=== PATIENT | male | born 1945 | race African-American/Black ===

== ENCOUNTER 2017-08-28 02:43 | Emergency (ER) | payer OTHER ==
[~2017-08-28] VITALS: Ht 180.3 cm; Wt 126.1 kg
[~2017-08-28 02:43] MED LIST: AMLO10TA3 PO; ASPI81CT89 PO; BACL10TA4 PO; CLOP75TA PO; COZ50 PO; FURO-570 PO; GABA300C PO; INSU100S22 SUBQ; ISOS20TA13 PO; LINA5TAB PO; METO-50 PO; NATE60TA PO; PANT40EC PO; POTA20SO16 PO; SIMV40TA1 PO
[2017-08-28 02:54] VITALS: BP 136/66
--- NOTE | 2017-08-28 03:55 | NUR ---
PT W/C ASSISTED TO BED 2.
--- NOTE | 2017-08-28 03:56 | NUR ---
PATIENT REFUSED GOWN AND TO BE PLACED ON MONITOR.
--- NOTE | 2017-08-28 04:16 | NUR ---
X-Ray at bedside.
--- NOTE | 2017-08-28 04:25 | NUR ---
71Y/M PRESENTS TO ER C/O PAIN. NKA, PMH COPD, DM, HTN, ARTHRITIS. PT HAS PAIN TO LEFT ANKLE, 8/10 NON RADIATING, CMS INTACT, SKIN INTACT, PT DENIES TRAUMA TO AREA. PT SAYS PAIN IS "FLAT". PT IS UNALBE TO BEAR WEIGHT ON ANKLE. SWELLING NOTED TO ANKLE AREA. PT LAYING BED, COMFORT NEEDS MET AT THIS TIME, ER MD AWARE OF PT STATUS.
[2017-08-28] MEDS ORDERED: IBUPROFEN 600 MG TAB PO ONE (04:40)
[2017-08-28] MEDS ORDERED: traMADol 50 MG TAB PO ONE (04:50)
--- NOTE | 2017-08-28 05:15 | NUR ---
Patient discharged with v/s stable. Written and verbal after care instructions given and explained. Patient alert, oriented and verbalized understanding of instructions. Wheel Chair Assisted with to car. All questions addressed prior to discharge. ID band removed. Patient advised to follow up with PMD. Rx of TRAMADOL given. Patient educated on indication of medication including possible reaction and side effects. Opportunity to ask questions provided and answered.
[2017-08-28 05:34] VITALS: BP 134/65
== END 2017-08-28 05:15 | disposition home or self-care (01) ==
LOC: MED 02:43
DX: M17.12 Unilateral primary osteoarthritis, left knee (principal); J44.9 Chronic obstructive pulmonary disease, unspecified; I10 Essential (primary) hypertension
CPT/HCPCS: 73630; 99284; Q0092

== ENCOUNTER 2018-03-09 22:43 | Emergency (ER) | payer OTHER ==
[~2018-03-09] VITALS: Ht 180.3 cm; Wt 130.6 kg
[2018-03-09 22:47] VITALS: BP 148/75
--- NOTE | 2018-03-09 22:54 | NUR ---
PT AMBULATED TO ER BED 7.
--- NOTE | 2018-03-09 22:55 | NUR ---
PATIENT PRESENTS TO ED WITH BILATERAL LOWER EXTREMITY PITTING EDEMA. PATIENT STATES HE NOTICED THE EDEMA "TONIGHT, THATS WHY I CAME IN". PT DENIES N/V/D; SKIN IS PINK/WARM/DRY; AAOX4 WITH EVEN AND STEADY GAIT; LUNGS WHEEZING BL; HR EVEN AND REGULAR; PT DENIES ANY FEVER, CP, OR COUGH AT THIS TIME; PATIENT STATES PAIN OF 0/10 AT THIS TIME; VSS; PATIENT POSITIONED FOR COMFORT; HOB ELEVATED; BEDRAILS UP X1; BED DOWN. ER MD MADE AWARE OF PT STATUS.
[2018-03-09] MEDS ORDERED: ALBUTEROL SULFATE/IPRATROPIU 3 ML SOL IH ONE ×2 (23:25→23:50)
--- NOTE | 2018-03-09 23:29 | NUR ---
UNABLE TO COLLECT URINE AT THIS TIME. DR. NGUYEN MADE AWARE
[2018-03-09] MEDS ORDERED: DILT120C91 PO (23:33)
[2018-03-09] MEDS ORDERED: ATOR10TA PO (23:33)
[2018-03-09] MEDS ORDERED: APIX5TAB PO (23:33)
[2018-03-09] MEDS ORDERED: TAMS0.4C96 PO (23:33)
[2018-03-09 23:53] LABS: BASOPHILS # (AUTO) 0.1 K/uL (0.00-0.22); BASOPHILS % (AUTO) 1.5 % (0.0-2.0); EOSINOPHILS # (AUTO) 0.1 K/uL (0-0.4); EOSINOPHILS % (AUTO) 2.2 % (0.0-4.0); HEMATOCRIT 33.5 % (36-52); HEMOGLOBIN 11.2 g/dL (12.0-18.0); LYMPHOCYTES % (AUTO) 32.7 % (20.5-51.1); MEAN CORPUSCULAR HEMOGLOBIN 26 pg (27-31); MEAN CORPUSCULAR HGB CONC 33 g/dL (33-37); MEAN CORPUSCULAR VOLUME 79.3 fL (80-94); MONOCYTES # (AUTO) 0.6 K/uL (0.8-1.0); MONOCYTES % (AUTO) 9.3 % (1.7-9.3); NEUTROPHILS # (AUTO) 3.4 K/uL (1.8-7.7); NEUTROPHILS % (AUTO) 54.3 % (42.2-75.2); PLATELET COUNT (AUTO) 187 K/uL (140-450); RED BLOOD CELL COUNT(AUTO) 4.22 MIL/uL (4.20-6.10); RED CELL DISTRIBUTION WIDTH 16.2 % (11.6-13.7); WHITE BLOOD COUNT (AUTO) 6.2 K/uL (4.8-10.8)
[2018-03-10 00:04] LABS: ANION GAP 13.5 (8-16); CARBON DIOXIDE 23.3 mmol/L (21-32); CHLORIDE 104 mmol/L (98-107); CREATININE 1.7 mg/dL (0.7-1.3); GLUCOSE 203 mg/dL (74-106); POTASSIUM 3.8 mmol/L (3.5-5.1); SODIUM SERUM 137 mmol/L (136-145); UREA NITROGEN, BLOOD 18 mg/dL (7-18)
[2018-03-10 00:12] LABS: ALBUMIN 3.3 g/dL (3.4-5.0); ASPARTATE AMINOTRANSFERASE 14 U/L (15-37); TOTAL BILIRUBIN 0.2 mg/dL (0.0-1.0)
[2018-03-10 00:30] VITALS: BP 148/75
--- NOTE | 2018-03-10 00:30 | NUR ---
Patient discharged with v/s stable. Written and verbal after care instructions given and explained. Patient verbalized understanding. Ambulatory with steady gait. All questions addressed prior to discharge. Advised to follow up with PMD.
== END 2018-03-10 00:30 | disposition home or self-care (01) ==
LOC: MED 22:43
DX: N17.9 Acute kidney failure, unspecified (principal); R60.0 Localized edema; J44.9 Chronic obstructive pulmonary disease, unspecified; E11.9 Type 2 diabetes mellitus without complications; I10 Essential (primary) hypertension
CPT/HCPCS: 36415; 71045; 80053; 82948; 83880; 84484; 85025; 93005; 94640; 99285; J7620

== ENCOUNTER 2018-03-20 21:40 | Emergency (ER) | payer OTHER ==
[~2018-03-20] VITALS: Ht 180.3 cm; Wt 127.9 kg
[~2018-03-20 21:40] MED LIST changes: +APIX5TAB PO; +ATOR10TA PO; +DILT120C91 PO; +TAMS0.4C96 PO
[2018-03-20 21:44] VITALS: BP 132/67
--- NOTE | 2018-03-20 21:47 | NUR ---
PATIENT PRESENTS TO ED WITH LEFT FOREARM/WRIST PAIN X1 DAY. DR STERN AT BEDSIDE EVALUATING PT. PT DENIES TRAUMA. DENIES N/V/D; SKIN IS PINK/WARM/DRY; AAOX4 WITH EVEN AND STEADY GAIT WITH ARENAS ASSIST; LUNGS CLEAR BL; HR EVEN AND REGULAR; PT DENIES ANY FEVER, CP, SOB, OR COUGH AT THIS TIME; PATIENT STATES PAIN OF 8/10 AT THIS TIME; VSS; PATIENT POSITIONED FOR COMFORT; HOB ELEVATED; BEDRAILS UP X2; BED DOWN. ER MD MADE AWARE OF PT STATUS. CONTINUE TO MONITOR.
--- NOTE | 2018-03-20 21:47 | NUR ---
TO BED # 8 AMBULATORY, REPORT GIVEN TO GEREMIAS CALDWELL.
--- NOTE | 2018-03-20 22:00 | NUR ---
XRAY AT BEDSIDE FOR INTERVENTION.
--- NOTE | 2018-03-20 22:06 | NUR ---
DR. STERN EVALUATING PATIENT BEDSIDE
[2018-03-20] MEDS ORDERED: MORPHINE SULFATE 4 MG/ML SYR IM ONE (22:10)
--- NOTE | 2018-03-20 22:54 | NUR ---
PT STATES 8/10 PAIN AFTER MORPHINE ADMINISTRATION. VSS. CONTINUE TO MONITOR.
--- NOTE | 2018-03-20 23:47 | NUR ---
PT IN BED RESTING WITH EYES CLOSED. VSS. CONTINUE TO MONITOR.
[2018-03-21] MEDS ORDERED: HYDROcodone/APAP 10/325 MG 1 TAB TAB PO ONE (01:20)
--- NOTE | 2018-03-21 02:25 | NUR ---
acewrap applied. on left wrist. secure. cms intact before and after acewrap applied. sling in place.
[2018-03-21 02:30] VITALS: BP 132/67
== END 2018-03-21 02:30 | disposition home or self-care (01) ==
LOC: MED 21:40
DX: M25.532 Pain in left wrist (principal); J44.9 Chronic obstructive pulmonary disease, unspecified; E11.9 Type 2 diabetes mellitus without complications; I10 Essential (primary) hypertension; Z79.899 Other long term (current) drug therapy
CPT/HCPCS: 73130; 96372; 99285; J2270; Q0092

== ENCOUNTER 2018-05-15 07:35 | Emergency (ER) | payer OTHER ==
[~2018-05-15] VITALS: Ht 180.3 cm; Wt 129.9 kg
[2018-05-15 07:39] VITALS: BP 122/65
--- NOTE | 2018-05-15 07:43 | NUR ---
PT AMBULATED TO ER BED 11
[2018-05-15] MEDS ORDERED: NACL 0.9% 1,000 ML IV ONE (08:05)
[2018-05-15 08:45] LABS: BASOPHILS # (AUTO) 0.1 K/uL (0.00-0.22); BASOPHILS % (AUTO) 1.1 % (0.0-2.0); EOSINOPHILS # (AUTO) 0.1 K/uL (0-0.4); EOSINOPHILS % (AUTO) 2.6 % (0.0-4.0); HEMATOCRIT 32.4 % (36-52); HEMOGLOBIN 10.9 g/dL (12.0-18.0); LYMPHOCYTES # (AUTO) 1.2 K/uL (2.0-11.5); LYMPHOCYTES % (AUTO) 22.6 % (20.5-51.1); MEAN CORPUSCULAR HEMOGLOBIN 27 pg (27-31); MEAN CORPUSCULAR HGB CONC 34 g/dL (33-37); MEAN CORPUSCULAR VOLUME 79.1 fL (80-94); MONOCYTES # (AUTO) 0.4 K/uL (0.8-1.0); MONOCYTES % (AUTO) 8.4 % (1.7-9.3); NEUTROPHILS # (AUTO) 3.3 K/uL (1.8-7.7); NEUTROPHILS % (AUTO) 65.3 % (42.2-75.2); PLATELET COUNT (AUTO) 227 K/uL (140-450); RED CELL DISTRIBUTION WIDTH 15.5 % (11.6-13.7); WHITE BLOOD COUNT (AUTO) 5.1 K/uL (4.8-10.8)
[2018-05-15 08:58] LABS: ALBUMIN 3.1 g/dL (3.4-5.0); ANION GAP 8.1 (8-16); ASPARTATE AMINOTRANSFERASE 18 U/L (15-37); CARBON DIOXIDE 29.4 mmol/L (21-32); CHLORIDE 94 mmol/L (98-107); CREATININE 2.4 mg/dL (0.7-1.3); POTASSIUM 4.5 mmol/L (3.5-5.1); SODIUM SERUM 127 mmol/L (136-145); TOTAL BILIRUBIN 0.2 mg/dL (0.0-1.0); UREA NITROGEN, BLOOD 33 mg/dL (7-18)
[2018-05-15 09:33] LABS: GLUCOSE 430 mg/dL (74-106)
[2018-05-15 09:50] LABS: APPEARANCE,URINE CLEAR (CLEAR); BILIRUBIN,URINE NEGATIVE (NEGATIVE); BLOOD, URINE NEGATIVE (NEGATIVE); COLOR,URINE YELLOW (YELLOW); LEUKOCYTE ESTERASE ,URINE TRACE (NEGATIVE); NITRITE, URINE NEGATIVE (NEGATIVE); PH,URINE 5.5 (5.0-9.0); UGLUCOSE 2+ (NEGATIVE)
[2018-05-15 09:59] LABS: RBC,URINE 0-5 (RARE) /HPF (0-5); WBC,URINE 0-5 (RARE) /HPF (0-5)
[2018-05-15 10:18] VITALS: BP 101/60
--- NOTE | 2018-05-15 10:19 | NUR ---
Patient discharged with v/s stable. Written and verbal after care instructions given and explained. Patient verbalized understanding. Ambulatory with to car. All questions addressed prior to discharge. Advised to follow up with PMD.
== END 2018-05-15 10:19 | disposition home or self-care (01) ==
LOC: MED 07:35
DX: E11.22 Type 2 diabetes mellitus with diabetic chronic kidney disease (principal); I12.9 Hypertensive chronic kidney disease with stage 1 through stage 4 chronic kidney disease, or unspecified chronic kidney disease; N18.9 Chronic kidney disease, unspecified; J44.9 Chronic obstructive pulmonary disease, unspecified; J45.909 Unspecified asthma, uncomplicated; E87.1 Hypo-osmolality and hyponatremia; Z79.899 Other long term (current) drug therapy
CPT/HCPCS: 36415; 80053; 81001; 82948; 85025; 93005; 96360; 99285; J7030